=== PATIENT | male | born 1985 | race Caucasian/White ===

== ENCOUNTER 2020-04-30 21:17 | Emergency (ER) | payer OTHER ==
[~2020-04-30] VITALS: Ht 188 cm; Wt 108.9 kg
[2020-04-30 21:28] VITALS: BP 142/81; Ht 188 cm; Wt 108.9 kg
[2020-04-30 22:46] LABS: BASOPHIL % 0.5 % (0.2-1.5); PLATELET COUNT 312 x10^3mcL (152-348); RED CELL DISTRIBUTION WIDTH 12.5 % (12.1-16.2)
[2020-04-30 22:54] LABS: CALCIUM 9.8 mg/dL (8.5-10.1); CARBON DIOXIDE 27.6 mmol/L (21-32); CHLORIDE SERUM 100 mmol/L (98-107); CREATININE SERUM 1.1 mg/dL (0.7-1.3); GFR1 > 60 mL/min; GLUCOSE SERUM 94 mg/dL (74-106); POTASSIUM SERUM 3.7 mmol/L (3.5-5.1); SODIUM SERUM 140 mmol/L (136-145)
[2020-04-30 23:00] LABS: ALBUMIN 4.6 g/dL (3.4-5.0); ALKALINE PHOSPHATASE 51 U/L (46-116); ALT/SGPT 78 U/L (16-63); AST/SGOT 19 U/L (15-37); BILIRUBIN TOTAL 0.8 mg/dL (0.20-1.00); TOTAL PROTEIN, SERUM 8.2 g/dL (6.4-8.2)
== END 2020-05-01 01:42 | disposition home or self-care (01) ==
LOC: ED 21:17 → EDBD 21:17 → ED 05-01 01:42
DX: F41.9 Anxiety disorder, unspecified (principal); Z98.890 Other specified postprocedural states; Z88.1 Allergy status to other antibiotic agents